=== PATIENT | female | born 1950 | race Caucasian/White ===

== ENCOUNTER 2018-07-08 01:04 | Emergency (ER) | payer BC, OTHER ==
[~2018-07-08] VITALS: Ht 152.4 cm; Wt 42.6 kg
[2018-07-08 01:42] LABS: ABSOLUTE NEUTROPHILS 4.8 thou/uL (1.4-8.2); BASOPHILS 0.9 % (0.0-2.0); EOSINOPHILS 1.6 % (0.0-3.0); HEMATOCRIT 40.3 % (37.0-47.0); HEMOGLOBIN 13.4 gm/dL (12.0-15.0); LYMPHOCYTES 26.3 % (24.0-44.0); MCH 28.7 pg (26.0-34.0); MCHC 33.3 g/dL (28.0-37.0); MCV 86.4 fL (80.0-100.0); MONOCYTES 9.4 % (1.0-8.0); PLATELET COUNT 225 thou/uL (150-400); POLYS 61.8 % (36.0-66.0); RBC 4.67 mil/uL (4.20-5.00); RDW 13.2 % (10.5-14.5); WBC 7.7 thou/uL (4.0-11.0)
[2018-07-08 01:45] LABS: ANION GAP 9 mmol/L (7-16); BUN 18 mg/dL (7-18); CHLORIDE 104 mmol/L (98-107); CO2 28 mmol/L (21-32); CREATININE 0.6 mg/dL (0.6-1.0); GLUCOSE 128 mg/dL (74-106); POTASSIUM 3.5 mmol/L (3.5-5.1); SODIUM 141 mmol/L (136-145)
[2018-07-08 01:51] LABS: POC CA IONIZED 4.4 mg/dL (4.5-5.3); POC CREATININE 0.5 mg/dL (0.6-1.3); POC HEMOGLOBIN 13.3 g/dL (12.0-15.0); POC POTASSIUM 3.4 mmol/L (3.5-5.1)
[2018-07-08 01:53] LABS: TROPONIN-I <0.06 ng/mL (<0.06)
[2018-07-08 01:54] LABS: PROTIME 9.7 Seconds (9.3-11.4)
[2018-07-08] MEDS ORDERED: LIPITOR 20 MG T20 M1 PO (02:09)
[2018-07-08 03:39] VITALS: BP 114/59
--- NOTE | 2018-07-08 09:29 | EKG ---
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1950 Requested By: Александр Cullen Order Number: [id number] MD: Raman Payne Measurements Intervals [place] Rate: 66 P: 74 FL: 173 QRS: 67 QRSD: 102 T: 62 QT: 403 QTc: 423 Interpretive Statements Sinus rhythm No significant abnormality No previous ECG available for comparison Electronically Signed On 07-08-2018 9:29:02 CDT by Raman Payne [email or web address] ��������������������������������������������� <ELECTRONICALLY SIGNED> ���������������������������������������� By: Raman Payne MD, [facility] ��������������������������������������������� 07/08/18 [id number] [id number] Raman Payne MD, FACC /EPI
== END 2018-07-08 03:52 | disposition home or self-care (01) ==
LOC: ER 01:04
PROVIDERS: Emergency Medicine
DX: R42 Dizziness and giddiness (principal)